=== PATIENT | female | born 1990 | race Caucasian/White ===

== ENCOUNTER 2017-09-01 15:38 | Emergency (ER) | payer MEDICAID ==
[2017-09-01 15:43] VITALS: PULSE 72; RESP 18; TEMP 98.1
--- NOTE | 2017-09-01 17:34 | EDPHY ---
H & P Time Seen by Provider: 09/01/17 17:16 HPI/ROS: CHIEF COMPLAINT: Short of breath fatigue HISTORY OF PRESENT ILLNESS: Patient is had symptoms for 2 months, much worse over the last 48 hours. Last week she had to stop every 20 minutes and a 3/4 mi hike and today after 3 stair she would have to slow down to catch her breath. She has also been more tired sleeping 16 hours a day. Shortness of breath not associated with cough or fever or chest pain. No vomiting or diarrhea. She does have hypothyroidism but just had her level checked at home and [place] over and her TSH was normal. REVIEW OF SYSTEMS: Eye: no change in vision ENT: no sore throat Cardiac: no chest pain or syncope Pulmonary: HPI Abdomen: no vomiting, diarrhea, abdominal pain Musculoskeletal: no back pain Skin: no rash Neuro: no headache Constitutional: no fever : no urinary symptoms A comprehensive 10 point review of systems is otherwise negative aside from elements mentioned in the history of present illness. PAST MEDICAL HISTORY: Hypothyroid, anxiety, no recent travel or immobilization Family history negative for DVT or PE Social history: Nonsmoker General Appearance: Alert and conversant, cooperative. Eyes: No scleral icterus. ENT, Mouth: Normal mucous membranes. Respiratory: Normal respiratory effort, breath sounds equal, lungs are clear to auscultation. Cardiovascular: Regular rate and rhythm. Gastrointestinal: Abdomen is soft and non tender. Neurological: Alert and oriented x3. Normally conversant. Face symmetric, normal movement and sensation in all extremities. Skin: Warm and dry, no rashes. Musculoskeletal: No peripheral edema and no joint swelling. No calf tenderness. Psychiatric: Not agitated. Emergency Department course/MDM: EKG normal, plan for chest x-ray and D-dimer. 1813: D-dimer elevated, plan for CT angiography of the chest to evaluate for pulmonary embolism. Discussed and consented. 717p: discussed with who will facilitate evaluation tomorrow for cardiology consult and echo. Results discussed with patient. This point I think cardiomyopathy, pulmonary embolism, anemia, ACS are all unlikely. Echo tomorrow with Cardiology follow-up. Primary care referral. Smoking Status: Never smoked Constitutional: Initial Vital Signs Temperature (C) 36.7 C 09/01/17 15:40 Heart Rate 72 09/01/17 15:40 Respiratory Rate 18 09/01/17 15:40 Blood Pressure 134/83 H 09/01/17 15:40 O2 Sat (%) 98 09/01/17 15:40 O2 Delivery Mode Room Air Allergies/Adverse Reactions: No Known Allergies Allergy (Unverified 09/01/17 15:43) Home Medications: Medication Instructions Recorded Citalopram 09/01/17 Levothyroxine 09/01/17 Medical Decision Making - Diagnostics Imaging Results: Imaging Impressions Chest/Thorax CTA 09/01/17 18:13 Impression: 1. No definite pulmonary thromboemboli. 2. No aortic aneurysm or dissection. 3. No pericardial effusion, pleural effusion, pneumonia, or pneumothorax. Findings and recommendations discussed with Emergency Department physician, Freddy Atkins at 1900 hour, 09/01/2017. Final report concurs with initial preliminary interpretation. A test result has been communicated to a licensed care provider and documented in the [facility] Result system on 09/01/2017 19:05, Message ID [id number]. Differential Diagnosis: Differential diagnosis considered for shortness of breath including but not limited to cardiomyopathy, pulmonary infectious process, COPD, asthma, pulmonary embolus and congestive heart failure. - Data Points Laboratory Results: Laboratory Results 09/01/17 17:35 09/01/17 17:35 09/01/17 09/01/17 09/01/17 17:35 17:35 17:35 WBC 10.38 10^3/uL H 10^3/uL (3.80-9.50) RBC 4.74 10^6/uL 10^6/uL (4.18-5.33) Hgb 14.0 g/dL g/dL (12.6-16.3) Hct 40.7 % % (38.0-47.0) MCV 85.9 fL fL (81.5-99.8) MCH 29.5 pg pg (27.9-34.1) MCHC 34.4 g/dL g/dL (32.4-36.7) RDW 12.7 % % (11.5-15.2) Plt Count 318 10^3/uL 10^3/uL (150-400) MPV 10.7 fL fL (8.7-11.7) Neut % (Auto) 54.5 % % (39.3-74.2) Lymph % (Auto) 35.3 % % (15.0-45.0) [place] % (Auto) 8.0 % % (4.5-13.0) Eos % (Auto) 1.2 % % (0.6-7.6) Baso % (Auto) 0.7 % % (0.3-1.7) Nucleat RBC Rel Count 0.0 % % (0.0-0.2) Absolute Neuts (auto) 5.67 10^3/uL 10^3/uL (1.70-6.50) Absolute Lymphs (auto) 3.66 10^3/uL H 10^3/uL (1.00-3.00) Absolute Monos (auto) 0.83 10^3/uL H 10^3/uL (0.30-0.80) Absolute Eos (auto) 0.12 10^3/uL 10^3/uL (0.03-0.40) Absolute Basos (auto) 0.07 10^3/uL 10^3/uL (0.02-0.10) Absolute Nucleated RBC 0.00 10^3/uL 10^3/uL (0-0.01) Immature Gran % 0.3 % % (0.0-1.1) Immature Gran # 0.03 10^3/uL 10^3/uL (0.00-0.10) D-Dimer 0.54 ug/mLFEU H ug/mLFEU (0.00-0.50) Sodium 138 mEq/L mEq/L (134-144) Potassium 4.4 mEq/L mEq/L (3.5-5.2) Chloride 101 mEq/L mEq/L (97-110) Carbon Dioxide 26 mEq/l mEq/l (22-31) Anion Gap 11 mEq/L mEq/L (8-16) BUN 8 mg/dL mg/dL (7-23) Creatinine 0.8 mg/dL mg/dL (0.6-1.0) Estimated GFR > 60 Glucose 83 mg/dL mg/dL (70-100) Calcium 9.2 mg/dL mg/dL (8.5-10.4) NT-Pro-B Natriuret Pep 41 pg/mL pg/mL (0-125) Departure - Departure Disposition: Home, Routine, Self-Care Clinical Impression: Dyspnea on exertion Condition: Good Instructions: Dyspnea (ED) Additional Instructions: Call [facility] tomorrow and tell them the ED physician spoke with Dr. Hernández , you are to be seen in office tomorrow. Referrals: Darrell Hernández MD [Medical Doctor] - 1 day without fail Misha Caputo MD [[facility] [place] Primary Care Provider] - As per Instructions
[2017-09-01 17:44] LABS: % IMMATURE GRANULYOCYTES 0.3 % (0.0-1.1); ABSOLUTE IMMATURE GRANULOCYTES 0.03 10^3/uL (0.00-0.10); ADD DIFF? NO; ADD MORPH? NO; ADD SCAN? NO; ATYPICAL LYMPHOCYTE FLAG 10 (0-99); FRAGMENT RBC FLAG 0 (0-99); HEMATOCRIT 40.7 % (38.0-47.0); LEFT SHIFT FLG 0 (0-99); LIPEMIA HEMOLYSIS FLAG 90 (0-99); MEAN CELL HEMOGLOBIN 29.5 pg (27.9-34.1); MEAN CELL HEMOGLOBIN CONCENTR. 34.4 g/dL (32.4-36.7); MEAN CELL VOLUME 85.9 fL (81.5-99.8); MEAN PLATELET VOLUME 10.7 fL (8.7-11.7); PLATELET CLUMPS FLAG 0 (0-99); PLATELET COUNT 318 10^3/uL (150-400); RED BLOOD CELL COUNT 4.74 10^6/uL (4.18-5.33); RED CELL DISTRIBUTION WIDTH 12.7 % (11.5-15.2)
--- NOTE | 2017-09-01 17:47 | CPEKG ---
Heart Rate: 63 RR Interval: 952 P-R Interval: 148 QRSD Interval: 72 QT Interval: 452 QTC Interval: 463 P [place]: 69 QRS [place]: 45 T Wave [place]: 36 EKG Severity - NORMAL ECG - EKG Impression: SINUS RHYTHM Electronically Signed By: Freddy Atkins 01-Sep-2017 18:41:48
[2017-09-01 17:53] LABS: ANION GAP 11 mEq/L (8-16); CALCIUM 9.2 mg/dL (8.5-10.4); CARBON DIOXIDE 26 mEq/l (22-31); CHLORIDE 101 mEq/L (97-110); CREATININE 0.8 mg/dL (0.6-1.0); GLOMERULAR FILTRATION RATE > 60; GLUCOSE 83 mg/dL (70-100); POTASSIUM 4.4 mEq/L (3.5-5.2); SODIUM 138 mEq/L (134-144)
[2017-09-01] MEDS ORDERED: IOPAMIDOL (ISOVUE 370) 100 ML BTL IV ONE (18:18)
[2017-09-01 19:43] VITALS: BP 132/84; O2SAT 99
== END 2017-09-01 19:43 | disposition home or self-care (01) ==
DX: R06.09 Other forms of dyspnea (principal)
CPT/HCPCS: Q9967